=== PATIENT | male | born 1975 | race Caucasian/White ===

== ENCOUNTER 2022-07-10 15:45 | Inpatient (IN) ==
[2022-07-10] MEDS ORDERED: SODIUM CHLORIDE 0.9% 500 ML IV STA (20:19)
[2022-07-10 20:41] LABS: Basophils # 0.1 10*3/uL (0.0-0.2); Basophils % 0.7 % (0.0-0.8); Eosinophils # 0.4 10*3/uL (0.0-0.87); Eosinophils % 3.8 % (0.00-10.9); Hemoglobin 13.7 GM/DL (14.0-18.0); Immature Granulocytes % 0.7 %; Immature Granulocytes Absolute 0.08 #; Lymphocytes % 25.9 % (21.2-54.2); Mean Corpuscular HGB Conc 33.4 GM/DL (32-36); Mean Corpuscular Volume 87.4 FL (87-102); Monocytes # 0.7 10*3/uL (0.11-0.8); Monocytes % 5.9 % (1.7-12.7); Platelet Count 427 T/CUMM (130-400); Red Blood Count 4.69 MC/CUMM (3.8-5.5); White Blood Count 11.6 T/CUMM (4-12)
[2022-07-10 21:00] LABS: Alanine Aminotransferase 17 U/L (16-61); Albumin 2.7 G/DL (3.4-5.0); Alkaline Phosphatase 110 U/L (45-117); Amylase 37 U/L (25-115); Aspartate Amino Transferase 13 U/L (0-37); Bilirubin,Total < 0.39 MG/DL (0.20-1.00); Blood Urea Nitrogen 26 MG/DL (7-18); Calcium 9.1 MG/DL (8.5-10.1); Carbon Dioxide 28 MMOL/L (21-32); Chloride 102 MMOL/L (98-107); Glucose 327 MG/DL (74-106); Osmolality,Calculated 283.4 MOS/KG (273-304); Potassium 4.8 MMOL/L (3.5-5.1); Sodium 133 MMOL/L (136-145); Total Protein 7.9 G/DL (6.4-8.2)
[2022-07-10] MEDS ORDERED: INSULIN REGULAR 100 UNIT/ML SUBCUT STA (21:05)
[2022-07-10] MEDS ORDERED: VANCOMYCIN INJ 1,000 MG in SODIUM CHLORIDE 0.9% 250 ML IV STA (21:14)
[2022-07-10] MEDS ORDERED: ONDANSETRON 4 MG/2 ML VIAL IV PRN (21:54)
[2022-07-10] MEDS ORDERED: MORPHINE 2 MG/1 ML SYRINGE IV PRN (21:54)
[2022-07-10] MEDS ORDERED: ZALEPLON 5 MG CAPSULE PO PRN (21:54)
[2022-07-10] MEDS ORDERED: NICOTINE 21 MG/24 HR PATCH TRANSDERM PRN (21:54)
[2022-07-10] MEDS ORDERED: ACETAMINOPHEN 325 MG TABLET PO PRN (21:54)
[2022-07-10] MEDS ORDERED: hydrALAZINE 20 MG/1 ML VIAL IV PRN (21:54)
[2022-07-11] MEDS: PIPERACILLIN/TAZOBACTAM 3,375 MG in SODIUM CHLORIDE 0.9% 100 ML IV SCH ×3 (03:16→17:53)
[2022-07-11] MEDS: ENOXAPARIN 40 MG/0.4 ML SYRINGE SUBCUT SCH ×2 (03:16→22:13)
[2022-07-11 04:03] LABS: Basophils # 0.1 10*3/uL (0.0-0.2); Basophils % 0.8 % (0.0-0.8); Eosinophils # 0.4 10*3/uL (0.0-0.87); Eosinophils % 4.3 % (0.00-10.9); Hematocrit 36.4 VOL% (42.0-52.0); Hemoglobin 12.5 GM/DL (14.0-18.0); Immature Granulocytes % 0.5 %; Immature Granulocytes Absolute 0.04 #; Lymphocytes # 2.7 10*3/uL (1.4-4.0); Mean Corpuscular HGB Conc 34.3 GM/DL (32-36); Mean Corpuscular Volume 88.1 FL (87-102); Mean Platelet Volume 10.5 FL (9.6-12.0); Monocytes # 0.6 10*3/uL (0.11-0.8); Monocytes % 6.5 % (1.7-12.7); Neutrophils % 56.9 % (38.7-73.9); Platelet Count 380 T/CUMM (130-400); Red Blood Count 4.13 MC/CUMM (3.8-5.5); White Blood Count 8.6 T/CUMM (4-12)
[2022-07-11 04:11] LABS: Calcium 8.5 MG/DL (8.5-10.1); Osmolality,Calculated 285.3 MOS/KG (273-304); Potassium 3.9 MMOL/L (3.5-5.1)
[2022-07-11 05:37] LABS: Amorphous Crystals,Urine Occasional /HPF (Few); Bacteria,Urine Occasional /HPF (Few); Hyaline Casts,Urine 5 /LPF (0-3); Mucus,Urine Occasional /LPF (Occasional); RBC,Urine 6 /HPF (0-4); Squamous Epithelial Cell,Urine Occasional /HPF (0-10)
[2022-07-11 05:39] LABS: Urine Appearance Clear (Clear); Urine Color Yellow (Yellow); Urine Specific Gravity 1.025 (1.001-1.035); Urine pH 5.5 (4.5-8.0)
[2022-07-11 05:40] LABS: Bilirubin,Urine Negative (Negative); Blood, Urine Trace mg/dL (Negative); Glucose,Urine (UA) 500 mg/dL (Negative); Ketones,Urine Negative (Negative); Nitrite,Urine Negative (Negative); Protein,Urine >=300 mg/dL (Negative); Urine Urobilinogen 0.2 eU/dL (<2.0)
[2022-07-11] MEDS: INSULIN LISPRO 100 UNIT/ML SUBCUT SCH ×4 (07:37→22:14)
[2022-07-11] MEDS: PANTOPRAZOLE 40 MG TABLET PO SCH (10:10)
[2022-07-12] MEDS: PIPERACILLIN/TAZOBACTAM 3,375 MG in SODIUM CHLORIDE 0.9% 100 ML IV SCH ×3 (00:46→17:37)
[2022-07-12 04:52] LABS: Basophils # 0.1 10*3/uL (0.0-0.2); Basophils % 0.6 % (0.0-0.8); Eosinophils # 0.4 10*3/uL (0.0-0.87); Hematocrit 35.7 VOL% (42.0-52.0); Hemoglobin 11.7 GM/DL (14.0-18.0); Immature Granulocytes % 0.5 %; Immature Granulocytes Absolute 0.05 #; Lymphocytes # 2.9 10*3/uL (1.4-4.0); Lymphocytes % 27.1 % (21.2-54.2); Mean Corpuscular HGB Conc 32.8 GM/DL (32-36); Mean Corpuscular Volume 90.4 FL (87-102); Mean Platelet Volume 10.2 FL (9.6-12.0); Monocytes # 0.7 10*3/uL (0.11-0.8); Monocytes % 6.2 % (1.7-12.7); Neutrophils % 61.6 % (38.7-73.9); Platelet Count 346 T/CUMM (130-400); Red Blood Count 3.95 MC/CUMM (3.8-5.5); Red Cell Distribution Width 12.9 % (9.3-17.3); White Blood Count 10.5 T/CUMM (4-12)
[2022-07-12 05:25] LABS: Calcium 8.4 MG/DL (8.5-10.1); Osmolality,Calculated 285.7 MOS/KG (273-304); Potassium 4.1 MMOL/L (3.5-5.1)
[2022-07-12] MEDS: INSULIN GLARGINE 100 UNIT/ML SUBCUT SCH (10:00)
[2022-07-12] MEDS: INSULIN LISPRO 100 UNIT/ML SUBCUT SCH ×4 (10:06→21:44)
[2022-07-12] MEDS: PANTOPRAZOLE 40 MG TABLET PO SCH (10:06)
[2022-07-12] MEDS ORDERED: LOSARTAN 25 MG TABLET PO SCH (11:00)
[2022-07-12] MEDS: ATORVASTATIN 40 MG TABLET PO SCH (11:52)
[2022-07-12] MEDS ORDERED: DEXTROSE 10% 250 ML BAG IV PRN (13:22)
[2022-07-12] MEDS ORDERED: GLUCAGON 1 MG VIAL IM PRN (13:22)
[2022-07-12 13:42] LABS: INR 0.9; PT Patient Result 10.5 SECS (10.1-12.1); Partial Thromboplastin Time 36.4 SECS (23.7-32.9)
[2022-07-12] MEDS: ENOXAPARIN 40 MG/0.4 ML SYRINGE SUBCUT SCH (21:43)
[2022-07-13] MEDS: PIPERACILLIN/TAZOBACTAM 3,375 MG in SODIUM CHLORIDE 0.9% 100 ML IV SCH ×3 (00:54→17:09)
[2022-07-13 05:01] LABS: Basophils # 0.1 10*3/uL (0.0-0.2); Basophils % 0.6 % (0.0-0.8); Eosinophils # 0.5 10*3/uL (0.0-0.87); Eosinophils % 4.4 % (0.00-10.9); Hematocrit 36.5 VOL% (42.0-52.0); Hemoglobin 12.2 GM/DL (14.0-18.0); Immature Granulocytes % 0.4 %; Immature Granulocytes Absolute 0.04 #; Lymphocytes # 2.8 10*3/uL (1.4-4.0); Lymphocytes % 26.4 % (21.2-54.2); Mean Corpuscular HGB Conc 33.4 GM/DL (32-36); Mean Corpuscular Volume 88.6 FL (87-102); Mean Platelet Volume 9.9 FL (9.6-12.0); Monocytes # 0.8 10*3/uL (0.11-0.8); Monocytes % 7.4 % (1.7-12.7); Neutrophils % 60.8 % (38.7-73.9); Platelet Count 331 T/CUMM (130-400); Red Blood Count 4.12 MC/CUMM (3.8-5.5); Red Cell Distribution Width 12.9 % (9.3-17.3); White Blood Count 10.7 T/CUMM (4-12)
[2022-07-13 05:22] LABS: Calcium 8.5 MG/DL (8.5-10.1); Osmolality,Calculated 281.7 MOS/KG (273-304); Potassium 3.9 MMOL/L (3.5-5.1)
[2022-07-13] MEDS: PANTOPRAZOLE 40 MG TABLET PO SCH (09:39)
[2022-07-13] MEDS: ATORVASTATIN 40 MG TABLET PO SCH (09:39)
[2022-07-13] MEDS: LOSARTAN 50 MG TABLET PO SCH (09:39)
[2022-07-13] MEDS: INSULIN GLARGINE 100 UNIT/ML SUBCUT SCH ×2 (10:56→11:47)
[2022-07-13] MEDS: INSULIN LISPRO 100 UNIT/ML SUBCUT SCH ×4 (10:56→21:06)
[2022-07-13] MEDS: ENOXAPARIN 40 MG/0.4 ML SYRINGE SUBCUT SCH (21:04)
[2022-07-14] MEDS: PIPERACILLIN/TAZOBACTAM 3,375 MG in SODIUM CHLORIDE 0.9% 100 ML IV SCH ×3 (00:54→17:16)
[2022-07-14 06:51] LABS: Basophils # 0.1 10*3/uL (0.0-0.2); Basophils % 0.7 % (0.0-0.8); Eosinophils # 0.5 10*3/uL (0.0-0.87); Eosinophils % 4.3 % (0.00-10.9); Hematocrit 39.1 VOL% (42.0-52.0); Hemoglobin 12.9 GM/DL (14.0-18.0); Immature Granulocytes % 0.4 %; Immature Granulocytes Absolute 0.04 #; Lymphocytes # 2.8 10*3/uL (1.4-4.0); Lymphocytes % 26.4 % (21.2-54.2); Mean Corpuscular Volume 90.1 FL (87-102); Mean Platelet Volume 10.3 FL (9.6-12.0); Monocytes # 0.8 10*3/uL (0.11-0.8); Monocytes % 7.7 % (1.7-12.7); Neutrophils % 60.5 % (38.7-73.9); Platelet Count 341 T/CUMM (130-400); Red Blood Count 4.34 MC/CUMM (3.8-5.5); Red Cell Distribution Width 12.8 % (9.3-17.3); White Blood Count 10.7 T/CUMM (4-12)
[2022-07-14 07:10] LABS: Osmolality,Calculated 285.1 MOS/KG (273-304)
[2022-07-14] MEDS: INSULIN LISPRO 100 UNIT/ML SUBCUT SCH ×4 (09:26→21:37)
[2022-07-14] MEDS: INSULIN GLARGINE 100 UNIT/ML SUBCUT SCH ×2 (09:26→21:37)
[2022-07-14] MEDS: ATORVASTATIN 40 MG TABLET PO SCH (09:27)
[2022-07-14] MEDS: LOSARTAN 50 MG TABLET PO SCH (09:27)
[2022-07-14] MEDS: PANTOPRAZOLE 40 MG TABLET PO SCH (09:27)
[2022-07-14] MEDS: ENOXAPARIN 40 MG/0.4 ML SYRINGE SUBCUT SCH (21:12)
[2022-07-15] MEDS: PIPERACILLIN/TAZOBACTAM 3,375 MG in SODIUM CHLORIDE 0.9% 100 ML IV SCH ×3 (01:26→16:50)
[2022-07-15 05:07] LABS: Basophils # 0.1 10*3/uL (0.0-0.2); Basophils % 0.7 % (0.0-0.8); Eosinophils # 0.5 10*3/uL (0.0-0.87); Eosinophils % 4.7 % (0.00-10.9); Hematocrit 37.8 VOL% (42.0-52.0); Hemoglobin 12.5 GM/DL (14.0-18.0); Immature Granulocytes % 0.5 %; Immature Granulocytes Absolute 0.06 #; Lymphocytes # 2.9 10*3/uL (1.4-4.0); Lymphocytes % 25.7 % (21.2-54.2); Mean Corpuscular HGB Conc 33.1 GM/DL (32-36); Mean Corpuscular Volume 89.8 FL (87-102); Mean Platelet Volume 10.5 FL (9.6-12.0); Monocytes # 0.9 10*3/uL (0.11-0.8); Monocytes % 7.6 % (1.7-12.7); Neutrophils % 60.8 % (38.7-73.9); Platelet Count 329 T/CUMM (130-400); Red Blood Count 4.21 MC/CUMM (3.8-5.5); White Blood Count 11.2 T/CUMM (4-12)
[2022-07-15 05:26] LABS: Calcium 8.4 MG/DL (8.5-10.1); Osmolality,Calculated 286.4 MOS/KG (273-304); Potassium 3.6 MMOL/L (3.5-5.1)
[2022-07-15] MEDS: INSULIN LISPRO 100 UNIT/ML SUBCUT SCH ×4 (10:27→21:30)
[2022-07-15] MEDS: ATORVASTATIN 40 MG TABLET PO SCH (10:46)
[2022-07-15] MEDS: LOSARTAN 50 MG TABLET PO SCH (10:46)
[2022-07-15] MEDS: PANTOPRAZOLE 40 MG TABLET PO SCH (10:47)
[2022-07-15] MEDS: INSULIN GLARGINE 100 UNIT/ML SUBCUT SCH ×2 (10:54→21:30)
[2022-07-15] MEDS ORDERED: SODIUM CHLORIDE 0.9% 1,000 ML IV SCH (15:00)
[2022-07-15] MEDS: LACTATED RINGERS 1,000 ML IV SCH (16:49)
[2022-07-15] MEDS: ENOXAPARIN 40 MG/0.4 ML SYRINGE SUBCUT SCH (21:30)
[2022-07-16] MEDS: PIPERACILLIN/TAZOBACTAM 3,375 MG in SODIUM CHLORIDE 0.9% 100 ML IV SCH ×3 (01:55→17:59)
[2022-07-16 04:57] LABS: Basophils # 0.1 10*3/uL (0.0-0.2); Basophils % 0.6 % (0.0-0.8); Eosinophils # 0.5 10*3/uL (0.0-0.87); Eosinophils % 5.2 % (0.00-10.9); Hematocrit 36.2 VOL% (42.0-52.0); Hemoglobin 12.1 GM/DL (14.0-18.0); Immature Granulocytes % 0.4 %; Immature Granulocytes Absolute 0.04 #; Lymphocytes # 1.9 10*3/uL (1.4-4.0); Lymphocytes % 19.4 % (21.2-54.2); Mean Corpuscular HGB Conc 33.4 GM/DL (32-36); Mean Corpuscular Volume 89.6 FL (87-102); Mean Platelet Volume 10.2 FL (9.6-12.0); Monocytes # 0.9 10*3/uL (0.11-0.8); Monocytes % 9.1 % (1.7-12.7); Neutrophils % 65.3 % (38.7-73.9); Platelet Count 315 T/CUMM (130-400); Red Blood Count 4.04 MC/CUMM (3.8-5.5); White Blood Count 9.9 T/CUMM (4-12)
[2022-07-16 05:24] LABS: Calcium 8.6 MG/DL (8.5-10.1); Osmolality,Calculated 290.4 MOS/KG (273-304); Potassium 3.6 MMOL/L (3.5-5.1)
[2022-07-16] MEDS: INSULIN LISPRO 100 UNIT/ML SUBCUT SCH ×4 (08:46→21:22)
[2022-07-16] MEDS: INSULIN GLARGINE 100 UNIT/ML SUBCUT SCH (08:46)
[2022-07-16] MEDS: ATORVASTATIN 80 MG TABLET PO SCH (08:47)
[2022-07-16] MEDS: ASPIRIN CHEW 81 MG TABLET PO SCH (08:47)
[2022-07-16] MEDS: PANTOPRAZOLE 40 MG TABLET PO SCH (08:47)
[2022-07-16] MEDS: ACETYLCYSTEINE 600 MG CAPSULE PO SCH ×2 (08:50→21:24)
[2022-07-16] MEDS: LACTATED RINGERS 1,000 ML IV SCH (09:22)
[2022-07-16] MEDS ORDERED: INSULIN GLARGINE 100 UNIT/ML SUBCUT ONE (13:00)
[2022-07-16] MEDS: SODIUM CHLORIDE 0.9% 1,000 ML IV SCH (18:05)
[2022-07-16] MEDS: ENOXAPARIN 40 MG/0.4 ML SYRINGE SUBCUT SCH (21:24)
[2022-07-17] MEDS: PIPERACILLIN/TAZOBACTAM 3,375 MG in SODIUM CHLORIDE 0.9% 100 ML IV SCH ×3 (02:09→17:10)
[2022-07-17 04:58] LABS: Basophils # 0.1 10*3/uL (0.0-0.2); Basophils % 0.7 % (0.0-0.8); Eosinophils # 0.6 10*3/uL (0.0-0.87); Hematocrit 35.5 VOL% (42.0-52.0); Hemoglobin 11.7 GM/DL (14.0-18.0); Immature Granulocytes % 0.3 %; Immature Granulocytes Absolute 0.03 #; Lymphocytes # 2.2 10*3/uL (1.4-4.0); Lymphocytes % 22.8 % (21.2-54.2); Mean Corpuscular Volume 88.8 FL (87-102); Mean Platelet Volume 10.1 FL (9.6-12.0); Monocytes # 0.7 10*3/uL (0.11-0.8); Monocytes % 7.6 % (1.7-12.7); Neutrophils % 62.6 % (38.7-73.9); Platelet Count 298 T/CUMM (130-400); White Blood Count 9.5 T/CUMM (4-12)
[2022-07-17 05:22] LABS: Calcium 8.5 MG/DL (8.5-10.1); Osmolality,Calculated 292.4 MOS/KG (273-304)
[2022-07-17] MEDS: ATORVASTATIN 80 MG TABLET PO SCH (08:56)
[2022-07-17] MEDS: INSULIN LISPRO 100 UNIT/ML SUBCUT SCH ×4 (08:56→20:35)
[2022-07-17] MEDS: ACETYLCYSTEINE 600 MG CAPSULE PO SCH ×2 (08:56→20:35)
[2022-07-17] MEDS: ASPIRIN CHEW 81 MG TABLET PO SCH (08:56)
[2022-07-17] MEDS: PANTOPRAZOLE 40 MG TABLET PO SCH (08:56)
[2022-07-17] MEDS: INSULIN GLARGINE 100 UNIT/ML SUBCUT SCH (09:02)
[2022-07-17] MEDS: SODIUM CHLORIDE 0.9% 1,000 ML IV SCH ×2 (09:57→23:28)
[2022-07-17] MEDS: ENOXAPARIN 40 MG/0.4 ML SYRINGE SUBCUT SCH (20:32)
[2022-07-18] MEDS: PIPERACILLIN/TAZOBACTAM 3,375 MG in SODIUM CHLORIDE 0.9% 100 ML IV SCH ×2 (01:21→09:56)
[2022-07-18 05:02] LABS: Basophils # 0.1 10*3/uL (0.0-0.2); Basophils % 0.9 % (0.0-0.8); Eosinophils # 0.5 10*3/uL (0.0-0.87); Eosinophils % 5.7 % (0.00-10.9); Hematocrit 36.1 VOL% (42.0-52.0); Immature Granulocytes % 0.3 %; Immature Granulocytes Absolute 0.03 #; Lymphocytes # 2.3 10*3/uL (1.4-4.0); Lymphocytes % 25.8 % (21.2-54.2); Mean Corpuscular HGB Conc 33.2 GM/DL (32-36); Mean Corpuscular Volume 88.7 FL (87-102); Mean Platelet Volume 10.2 FL (9.6-12.0); Monocytes # 0.8 10*3/uL (0.11-0.8); Monocytes % 8.6 % (1.7-12.7); Neutrophils % 58.7 % (38.7-73.9); Platelet Count 307 T/CUMM (130-400); Red Blood Count 4.07 MC/CUMM (3.8-5.5); Red Cell Distribution Width 13.1 % (9.3-17.3); White Blood Count 8.9 T/CUMM (4-12)
[2022-07-18 05:16] LABS: Calcium 8.8 MG/DL (8.5-10.1); Osmolality,Calculated 289.1 MOS/KG (273-304); Potassium 3.8 MMOL/L (3.5-5.1)
[2022-07-18] MEDS: INSULIN LISPRO 100 UNIT/ML SUBCUT SCH ×4 (07:58→23:40)
[2022-07-18] MEDS: INSULIN GLARGINE 100 UNIT/ML SUBCUT SCH (09:58)
[2022-07-18] MEDS: ASPIRIN CHEW 81 MG TABLET PO SCH (10:01)
[2022-07-18] MEDS: ATORVASTATIN 80 MG TABLET PO SCH (10:01)
[2022-07-18] MEDS: SODIUM CHLORIDE 0.9% 1,000 ML IV SCH ×3 (10:02→23:31)
[2022-07-18] MEDS: PANTOPRAZOLE 40 MG TABLET PO SCH (10:02)
[2022-07-18] MEDS: ACETYLCYSTEINE 600 MG CAPSULE PO SCH ×2 (10:02→23:30)
[2022-07-18] MEDS ORDERED: diphenhydrAMINE CAP 25 MG CAPSULE PO ONE (15:30)
[2022-07-18] MEDS ORDERED: DIAZEPAM 5 MG TABLET PO ONE (15:30)
[2022-07-18] MEDS: ENOXAPARIN 40 MG/0.4 ML SYRINGE SUBCUT SCH (23:30)
[2022-07-19 08:35] LABS: Basophils # 0.1 10*3/uL (0.0-0.2); Basophils % 0.7 % (0.0-0.8); Eosinophils # 0.5 10*3/uL (0.0-0.87); Eosinophils % 5.5 % (0.00-10.9); Hemoglobin 13.3 GM/DL (14.0-18.0); Immature Granulocytes % 0.4 %; Immature Granulocytes Absolute 0.04 #; Lymphocytes # 2.2 10*3/uL (1.4-4.0); Lymphocytes % 22.7 % (21.2-54.2); Mean Corpuscular HGB Conc 33.3 GM/DL (32-36); Mean Corpuscular Volume 88.5 FL (87-102); Mean Platelet Volume 9.9 FL (9.6-12.0); Monocytes # 0.7 10*3/uL (0.11-0.8); Monocytes % 6.9 % (1.7-12.7); Neutrophils % 63.8 % (38.7-73.9); Platelet Count 321 T/CUMM (130-400); Red Blood Count 4.52 MC/CUMM (3.8-5.5); Red Cell Distribution Width 13.2 % (9.3-17.3); White Blood Count 9.7 T/CUMM (4-12)
[2022-07-19 08:41] LABS: Calcium 9.3 MG/DL (8.5-10.1); Osmolality,Calculated 288.4 MOS/KG (273-304); Potassium 4.5 MMOL/L (3.5-5.1)
[2022-07-19] MEDS: INSULIN LISPRO 100 UNIT/ML SUBCUT SCH ×4 (09:41→22:16)
[2022-07-19] MEDS: INSULIN GLARGINE 100 UNIT/ML SUBCUT SCH (09:42)
[2022-07-19] MEDS: ATORVASTATIN 80 MG TABLET PO SCH (09:43)
[2022-07-19] MEDS: ACETYLCYSTEINE 600 MG CAPSULE PO SCH ×2 (09:43→22:16)
[2022-07-19] MEDS: ASPIRIN CHEW 81 MG TABLET PO SCH (09:43)
[2022-07-19] MEDS: PANTOPRAZOLE 40 MG TABLET PO SCH (09:43)
[2022-07-19] MEDS: SODIUM CHLORIDE 0.9% 1,000 ML IV SCH (13:27)
[2022-07-19] MEDS: ENOXAPARIN 40 MG/0.4 ML SYRINGE SUBCUT SCH (22:16)
[2022-07-20 05:47] LABS: Basophils # 0.1 10*3/uL (0.0-0.2); Basophils % 0.7 % (0.0-0.8); Eosinophils # 0.6 10*3/uL (0.0-0.87); Eosinophils % 6.4 % (0.00-10.9); Hematocrit 38.8 VOL% (42.0-52.0); Hemoglobin 12.7 GM/DL (14.0-18.0); Immature Granulocytes % 0.7 %; Immature Granulocytes Absolute 0.07 #; Lymphocytes # 3.4 10*3/uL (1.4-4.0); Lymphocytes % 34.4 % (21.2-54.2); Mean Corpuscular HGB Conc 32.7 GM/DL (32-36); Mean Corpuscular Volume 89.8 FL (87-102); Mean Platelet Volume 10.2 FL (9.6-12.0); Monocytes # 0.8 10*3/uL (0.11-0.8); Monocytes % 8.5 % (1.7-12.7); Neutrophils % 49.3 % (38.7-73.9); Platelet Count 309 T/CUMM (130-400); Red Blood Count 4.32 MC/CUMM (3.8-5.5); Red Cell Distribution Width 13.2 % (9.3-17.3); White Blood Count 9.8 T/CUMM (4-12)
[2022-07-20 05:55] LABS: Calcium 8.2 MG/DL (8.5-10.1); Osmolality,Calculated 293.3 MOS/KG (273-304)
[2022-07-20] MEDS: SODIUM CHLORIDE 0.9% 1,000 ML IV SCH (06:15)
[2022-07-20 06:36] LABS: Platelet Estimate Normal
[2022-07-20 06:37] LABS: Anisocytosis Slight; Burr Cells Few
[2022-07-20] MEDS: ACETYLCYSTEINE 600 MG CAPSULE PO SCH ×2 (09:47→20:37)
[2022-07-20] MEDS: INSULIN GLARGINE 100 UNIT/ML SUBCUT SCH (09:47)
[2022-07-20] MEDS: PANTOPRAZOLE 40 MG TABLET PO SCH (09:47)
[2022-07-20] MEDS: ASPIRIN CHEW 81 MG TABLET PO SCH (09:47)
[2022-07-20] MEDS: ATORVASTATIN 80 MG TABLET PO SCH (09:47)
[2022-07-20] MEDS: INSULIN LISPRO 100 UNIT/ML SUBCUT SCH ×4 (09:48→20:37)
[2022-07-20] MEDS: ENOXAPARIN 40 MG/0.4 ML SYRINGE SUBCUT SCH (20:37)
[2022-07-21] MEDS: SODIUM CHLORIDE 0.9% 1,000 ML IV SCH ×5 (00:10→19:55)
[2022-07-21 07:01] LABS: Basophils # 0.1 10*3/uL (0.0-0.2); Basophils % 0.9 % (0.0-0.8); Eosinophils # 0.7 10*3/uL (0.0-0.87); Eosinophils % 7.4 % (0.00-10.9); Hematocrit 38.2 VOL% (42.0-52.0); Hemoglobin 12.5 GM/DL (14.0-18.0); Immature Granulocytes % 0.7 %; Immature Granulocytes Absolute 0.06 #; Lymphocytes # 2.4 10*3/uL (1.4-4.0); Lymphocytes % 27.2 % (21.2-54.2); Mean Corpuscular HGB Conc 32.7 GM/DL (32-36); Mean Corpuscular Volume 90.1 FL (87-102); Mean Platelet Volume 10.3 FL (9.6-12.0); Monocytes # 0.7 10*3/uL (0.11-0.8); Monocytes % 7.8 % (1.7-12.7); Platelet Count 307 T/CUMM (130-400); Red Blood Count 4.24 MC/CUMM (3.8-5.5); Red Cell Distribution Width 13.3 % (9.3-17.3); White Blood Count 8.9 T/CUMM (4-12)
[2022-07-21 07:10] LABS: Calcium 8.6 MG/DL (8.5-10.1); Osmolality,Calculated 294.3 MOS/KG (273-304)
[2022-07-21] MEDS: PANTOPRAZOLE 40 MG TABLET PO SCH (09:55)
[2022-07-21] MEDS: INSULIN LISPRO 100 UNIT/ML SUBCUT SCH ×4 (09:55→21:36)
[2022-07-21] MEDS: ASPIRIN CHEW 81 MG TABLET PO SCH (09:56)
[2022-07-21] MEDS: ATORVASTATIN 80 MG TABLET PO SCH (09:56)
[2022-07-21] MEDS: ACETYLCYSTEINE 600 MG CAPSULE PO SCH ×2 (09:56→21:50)
[2022-07-21] MEDS: INSULIN GLARGINE 100 UNIT/ML SUBCUT SCH ×2 (09:58→10:30)
[2022-07-21] MEDS: PIPERACILLIN/TAZOBACTAM 3,375 MG in SODIUM CHLORIDE 0.9% 100 ML IV SCH ×2 (11:58→21:51)
[2022-07-21] MEDS: ENOXAPARIN 40 MG/0.4 ML SYRINGE SUBCUT SCH (21:50)
[2022-07-22] MEDS: PIPERACILLIN/TAZOBACTAM 3,375 MG in SODIUM CHLORIDE 0.9% 100 ML IV SCH ×3 (03:47→21:17)
[2022-07-22 05:28] LABS: Basophils # 0.1 10*3/uL (0.0-0.2); Basophils % 0.9 % (0.0-0.8); Eosinophils # 0.7 10*3/uL (0.0-0.87); Eosinophils % 7.1 % (0.00-10.9); Hematocrit 35.5 VOL% (42.0-52.0); Hemoglobin 11.7 GM/DL (14.0-18.0); Immature Granulocytes % 0.6 %; Immature Granulocytes Absolute 0.06 #; Lymphocytes # 2.4 10*3/uL (1.4-4.0); Lymphocytes % 25.4 % (21.2-54.2); Mean Corpuscular Volume 89.9 FL (87-102); Mean Platelet Volume 10.1 FL (9.6-12.0); Monocytes # 0.7 10*3/uL (0.11-0.8); Monocytes % 7.4 % (1.7-12.7); Neutrophils % 58.6 % (38.7-73.9); Platelet Count 303 T/CUMM (130-400); Red Blood Count 3.95 MC/CUMM (3.8-5.5); Red Cell Distribution Width 13.3 % (9.3-17.3); White Blood Count 9.4 T/CUMM (4-12)
[2022-07-22 05:52] LABS: Calcium 8.5 MG/DL (8.5-10.1); Osmolality,Calculated 292.1 MOS/KG (273-304); Potassium 3.9 MMOL/L (3.5-5.1)
[2022-07-22] MEDS ORDERED: diphenhydrAMINE CAP 25 MG CAPSULE PO ONE (07:45)
[2022-07-22] MEDS ORDERED: DIAZEPAM 5 MG TABLET PO ONE (07:45)
[2022-07-22] MEDS: SODIUM CHLORIDE 0.9% 1,000 ML IV SCH (07:55)
[2022-07-22] MEDS: INSULIN LISPRO 100 UNIT/ML SUBCUT SCH ×4 (07:57→21:18)
[2022-07-22] MEDS ORDERED: HYDROmorphone 1 MG/1 ML SYRINGE ONE ×2 (08:01→08:24)
[2022-07-22] MEDS ORDERED: MIDAZOLAM 2 MG/2 ML VIAL ONE (08:01)
[2022-07-22] MEDS ORDERED: VERAPAMIL 5 MG/2 ML VIAL ONE (08:10)
[2022-07-22] MEDS ORDERED: diphenhydrAMINE 50 MG/1 ML VIAL ONE (08:10)
[2022-07-22] MEDS ORDERED: NITROGLYCERIN DRIP 50 MG/250 ML BOTTLE IV ONE (08:10)
[2022-07-22] MEDS ORDERED: ASPIRIN CHEW 81 MG TABLET PO ONE (08:10)
[2022-07-22] MEDS ORDERED: HEPARIN 5,000 UNIT/1 ML VIAL ONE (08:53)
[2022-07-22] MEDS: ACETYLCYSTEINE 600 MG CAPSULE PO SCH ×2 (09:00→21:18)
[2022-07-22] MEDS: ATORVASTATIN 80 MG TABLET PO SCH (09:00)
[2022-07-22] MEDS: INSULIN GLARGINE 100 UNIT/ML SUBCUT SCH (09:00)
[2022-07-22] MEDS: PANTOPRAZOLE 40 MG TABLET PO SCH (09:00)
[2022-07-22] MEDS ORDERED: TIROFIBAN 5,000 MCG/100 ML PREMIX IV ONE (09:12)
[2022-07-22] MEDS ORDERED: CLOPIDOGREL 300 MG TABLET ONE (10:30)
[2022-07-22] MEDS: ASPIRIN CHEW 81 MG TABLET PO SCH (11:25)
[2022-07-22] MEDS ORDERED: DEXTROSE 50% 25 GM/50 ML VIAL IV PRN (17:08)
[2022-07-22] MEDS ORDERED: GLUCAGON 1 MG VIAL IM PRN (17:08)
[2022-07-22] MEDS: ENOXAPARIN 40 MG/0.4 ML SYRINGE SUBCUT SCH (21:18)
[2022-07-23 04:05] LABS: Basophils # 0.1 10*3/uL (0.0-0.2); Basophils % 0.6 % (0.0-0.8); Eosinophils # 0.8 10*3/uL (0.0-0.87); Eosinophils % 6.1 % (0.00-10.9); Hematocrit 36.3 VOL% (42.0-52.0); Hemoglobin 11.9 GM/DL (14.0-18.0); Immature Granulocytes % 0.5 %; Immature Granulocytes Absolute 0.07 #; Lymphocytes # 2.7 10*3/uL (1.4-4.0); Lymphocytes % 19.3 % (21.2-54.2); Mean Corpuscular HGB Conc 32.8 GM/DL (32-36); Mean Corpuscular Volume 89.9 FL (87-102); Monocytes # 0.9 10*3/uL (0.11-0.8); Monocytes % 6.3 % (1.7-12.7); Neutrophils % 67.2 % (38.7-73.9); Platelet Count 309 T/CUMM (130-400); Red Blood Count 4.04 MC/CUMM (3.8-5.5); Red Cell Distribution Width 13.3 % (9.3-17.3); White Blood Count 13.8 T/CUMM (4-12)
[2022-07-23 04:21] LABS: Calcium 8.6 MG/DL (8.5-10.1); Osmolality,Calculated 288.4 MOS/KG (273-304); Potassium 4.3 MMOL/L (3.5-5.1)
[2022-07-23] MEDS: PIPERACILLIN/TAZOBACTAM 3,375 MG in SODIUM CHLORIDE 0.9% 100 ML IV SCH ×3 (05:50→20:20)
[2022-07-23] MEDS: INSULIN LISPRO 100 UNIT/ML SUBCUT SCH ×4 (07:44→20:27)
[2022-07-23] MEDS: SODIUM CHLORIDE 0.9% 1,000 ML IV SCH ×3 (07:45→16:49)
[2022-07-23] MEDS: ACETYLCYSTEINE 600 MG CAPSULE PO SCH ×2 (09:21→20:20)
[2022-07-23] MEDS: INSULIN GLARGINE 100 UNIT/ML SUBCUT SCH (09:21)
[2022-07-23] MEDS: CLOPIDOGREL 75 MG TABLET PO SCH (09:21)
[2022-07-23] MEDS: ASPIRIN CHEW 81 MG TABLET PO SCH (09:21)
[2022-07-23] MEDS: ATORVASTATIN 80 MG TABLET PO SCH (09:22)
[2022-07-23] MEDS: PANTOPRAZOLE 40 MG TABLET PO SCH (09:22)
[2022-07-23] MEDS: ENOXAPARIN 40 MG/0.4 ML SYRINGE SUBCUT SCH (20:20)
[2022-07-24] MEDS: SODIUM CHLORIDE 0.9% 1,000 ML IV SCH ×2 (04:57→07:01)
[2022-07-24] MEDS: PIPERACILLIN/TAZOBACTAM 3,375 MG in SODIUM CHLORIDE 0.9% 100 ML IV SCH ×3 (04:57→21:36)
[2022-07-24 07:46] LABS: Phosphorous 3.4 MG/DL (2.5-4.9); Uric Acid 4.6 MG/DL (3.5-7.2)
[2022-07-24] MEDS: INSULIN LISPRO 100 UNIT/ML SUBCUT SCH ×3 (07:52→16:23)
[2022-07-24] MEDS: ASPIRIN CHEW 81 MG TABLET PO SCH (08:51)
[2022-07-24] MEDS: ATORVASTATIN 80 MG TABLET PO SCH (08:51)
[2022-07-24] MEDS: CLOPIDOGREL 75 MG TABLET PO SCH (08:51)
[2022-07-24] MEDS: ACETYLCYSTEINE 600 MG CAPSULE PO SCH ×2 (08:51→21:36)
[2022-07-24] MEDS: PANTOPRAZOLE 40 MG TABLET PO SCH (08:51)
[2022-07-24] MEDS: INSULIN GLARGINE 100 UNIT/ML SUBCUT SCH (08:56)
[2022-07-24 16:10] LABS: Protein/Creatinine Ratio,Urine 2.5 RATIO
[2022-07-24] MEDS: ENOXAPARIN 40 MG/0.4 ML SYRINGE SUBCUT SCH (22:19)
[2022-07-25] MEDS: INSULIN LISPRO 100 UNIT/ML SUBCUT SCH ×5 (02:20→20:47)
[2022-07-25] MEDS: SODIUM CHLORIDE 0.9% 1,000 ML IV SCH ×2 (04:53→09:24)
[2022-07-25] MEDS: PIPERACILLIN/TAZOBACTAM 3,375 MG in SODIUM CHLORIDE 0.9% 100 ML IV SCH ×3 (05:06→20:44)
[2022-07-25] MEDS ORDERED: MIDAZOLAM 2 MG/2 ML VIAL ONE (07:31)
[2022-07-25] MEDS ORDERED: LIDOCAINE 2% 5 ML VIAL ONE (07:31)
[2022-07-25] MEDS ORDERED: propofoL 200 MG/20 ML VIAL IV ONE ×2 (07:31→07:40)
[2022-07-25] MEDS ORDERED: fentaNYL 100 MCG/2 ML VIAL ONE (07:31)
[2022-07-25] MEDS ORDERED: LIDOCAINE 1% 5 ML VIAL ONE (07:53)
[2022-07-25] MEDS ORDERED: BUPIVACAINE MPF 0.25% 10 ML VIAL ONE (07:53)
[2022-07-25] MEDS ORDERED: KETAMINE 500 MG/10 ML VIAL ONE (08:14)
[2022-07-25] MEDS: ASPIRIN CHEW 81 MG TABLET PO SCH (09:27)
[2022-07-25] MEDS: CLOPIDOGREL 75 MG TABLET PO SCH (09:27)
[2022-07-25] MEDS: INSULIN GLARGINE 100 UNIT/ML SUBCUT SCH (10:02)
[2022-07-25] MEDS: ACETYLCYSTEINE 600 MG CAPSULE PO SCH ×2 (10:29→20:49)
[2022-07-25] MEDS: PANTOPRAZOLE 40 MG TABLET PO SCH (10:29)
[2022-07-25] MEDS: ATORVASTATIN 80 MG TABLET PO SCH (10:29)
[2022-07-25 10:51] LABS: Calcium 8.6 MG/DL (8.5-10.1)
[2022-07-25] MEDS: ENOXAPARIN 40 MG/0.4 ML SYRINGE SUBCUT SCH (20:48)
[2022-07-26 06:09] LABS: Calcium 8.2 MG/DL (8.5-10.1); Potassium 3.7 MMOL/L (3.5-5.1)
[2022-07-26] MEDS: PIPERACILLIN/TAZOBACTAM 3,375 MG in SODIUM CHLORIDE 0.9% 100 ML IV SCH ×2 (06:36→15:13)
[2022-07-26] MEDS: INSULIN LISPRO 100 UNIT/ML SUBCUT SCH ×4 (07:43→22:50)
[2022-07-26] MEDS: ATORVASTATIN 80 MG TABLET PO SCH (08:56)
[2022-07-26] MEDS: CLOPIDOGREL 75 MG TABLET PO SCH (08:57)
[2022-07-26] MEDS: ASPIRIN CHEW 81 MG TABLET PO SCH (08:57)
[2022-07-26] MEDS: PANTOPRAZOLE 40 MG TABLET PO SCH (10:15)
[2022-07-26] MEDS: INSULIN GLARGINE 100 UNIT/ML SUBCUT SCH (15:06)
[2022-07-26] MEDS: ACETYLCYSTEINE 600 MG CAPSULE PO SCH ×2 (15:06→22:50)
[2022-07-26] MEDS: ENOXAPARIN 40 MG/0.4 ML SYRINGE SUBCUT SCH (22:49)
[2022-07-27] MEDS: PIPERACILLIN/TAZOBACTAM 3,375 MG in SODIUM CHLORIDE 0.9% 100 ML IV SCH ×2 (00:26→08:58)
[2022-07-27] MEDS: ATORVASTATIN 80 MG TABLET PO SCH (08:57)
[2022-07-27] MEDS: ASPIRIN CHEW 81 MG TABLET PO SCH (08:57)
[2022-07-27] MEDS: CLOPIDOGREL 75 MG TABLET PO SCH (08:57)
[2022-07-27] MEDS: PANTOPRAZOLE 40 MG TABLET PO SCH (08:57)
[2022-07-27] MEDS: ACETYLCYSTEINE 600 MG CAPSULE PO SCH (08:57)
[2022-07-27] MEDS: INSULIN LISPRO 100 UNIT/ML SUBCUT SCH ×2 (08:58→12:47)
[2022-07-27] MEDS: INSULIN GLARGINE 100 UNIT/ML SUBCUT SCH (11:32)
[2022-07-27 12:31] VITALS: BP 159/65
== END 2022-07-27 13:10 | disposition home or self-care (01) | DRG 271 ==
LOC: EDUNIT# → EDBD → N.ED 15:45 → N.EDINP 21:40 → SUATTDRO 21:40 → N.5E 07-11 12:35
PROVIDERS: ADMIT Internal Medicine; ATTEND Internal Medicine Geriatric Medicine

== ENCOUNTER 2022-08-14 15:54 | Inpatient (IN) ==
[2022-08-14] MEDS ORDERED: PROMETHAZINE 25 MG/1 ML VIAL IM PRN (16:48)
[2022-08-14] MEDS ORDERED: ONDANSETRON 4 MG/2 ML VIAL IV PRN (16:48)
[2022-08-14] MEDS ORDERED: HYDROmorphone 1 MG/1 ML SYRINGE IV PRN (16:48)
[2022-08-14] MEDS ORDERED: ACETAMINOPHEN 325 MG TABLET PO PRN (16:48)
[2022-08-14] MEDS: LACTATED RINGERS 1,000 ML IV SCH (17:00)
[2022-08-14 17:40] LABS: Basophils # 0.1 10*3/uL (0.0-0.2); Basophils % 0.6 % (0.0-0.8); Eosinophils # 0.5 10*3/uL (0.0-0.87); Eosinophils % 4.9 % (0.00-10.9); Hematocrit 33.1 VOL% (42.0-52.0); Immature Granulocytes % 0.5 %; Immature Granulocytes Absolute 0.05 #; Lymphocytes # 2.3 10*3/uL (1.4-4.0); Lymphocytes % 21.3 % (21.2-54.2); Mean Corpuscular HGB Conc 33.2 GM/DL (32-36); Mean Platelet Volume 10.3 FL (9.6-12.0); Monocytes % 8.9 % (1.7-12.7); Neutrophils % 63.8 % (38.7-73.9); Platelet Count 334 T/CUMM (130-400); Red Blood Count 3.72 MC/CUMM (3.8-5.5); Red Cell Distribution Width 13.5 % (9.3-17.3); White Blood Count 10.7 T/CUMM (4-12)
[2022-08-14 17:56] LABS: Calcium 8.9 MG/DL (8.5-10.1); Osmolality,Calculated 290.7 MOS/KG (273-304); Potassium 4.7 MMOL/L (3.5-5.1)
[2022-08-14] MEDS: LINEZOLID INJ 600 MG/300 ML PREMIX IV SCH (20:34)
[2022-08-14] MEDS: PIPERACILLIN/TAZOBACTAM 3,375 MG in SODIUM CHLORIDE 0.9% 100 ML IV SCH (22:30)
[2022-08-15 05:01] LABS: Basophils # 0.1 10*3/uL (0.0-0.2); Basophils % 0.9 % (0.0-0.8); Eosinophils # 0.6 10*3/uL (0.0-0.87); Eosinophils % 6.1 % (0.00-10.9); Hematocrit 31.2 VOL% (42.0-52.0); Hemoglobin 10.2 GM/DL (14.0-18.0); Immature Granulocytes % 0.3 %; Immature Granulocytes Absolute 0.03 #; Lymphocytes # 2.3 10*3/uL (1.4-4.0); Lymphocytes % 23.6 % (21.2-54.2); Mean Corpuscular HGB Conc 32.7 GM/DL (32-36); Mean Corpuscular Volume 89.4 FL (87-102); Mean Platelet Volume 10.6 FL (9.6-12.0); Monocytes # 0.6 10*3/uL (0.11-0.8); Monocytes % 6.3 % (1.7-12.7); Neutrophils % 62.8 % (38.7-73.9); Platelet Count 302 T/CUMM (130-400); Red Blood Count 3.49 MC/CUMM (3.8-5.5); Red Cell Distribution Width 13.4 % (9.3-17.3); White Blood Count 9.8 T/CUMM (4-12)
[2022-08-15 05:26] LABS: Calcium 8.6 MG/DL (8.5-10.1); Osmolality,Calculated 286.5 MOS/KG (273-304); Potassium 4.5 MMOL/L (3.5-5.1)
[2022-08-15] MEDS: PIPERACILLIN/TAZOBACTAM 3,375 MG in SODIUM CHLORIDE 0.9% 100 ML IV SCH ×3 (05:26→22:15)
[2022-08-15] MEDS ORDERED: GLUCAGON 1 MG VIAL IM PRN (08:32)
[2022-08-15] MEDS ORDERED: DEXTROSE 10% 250 ML BAG IV PRN (08:32)
[2022-08-15] MEDS: LACTATED RINGERS 1,000 ML IV SCH ×2 (11:01→19:30)
[2022-08-15] MEDS: LINEZOLID INJ 600 MG/300 ML PREMIX IV SCH ×2 (11:01→21:07)
[2022-08-15] MEDS: ENOXAPARIN 40 MG/0.4 ML SYRINGE SUBCUT SCH (11:02)
[2022-08-15] MEDS: PANTOPRAZOLE 40 MG TABLET PO SCH (11:02)
[2022-08-15] MEDS: INSULIN LISPRO 100 UNIT/ML SUBCUT SCH (21:16)
[2022-08-16] MEDS: PIPERACILLIN/TAZOBACTAM 3,375 MG in SODIUM CHLORIDE 0.9% 100 ML IV SCH ×3 (05:45→22:35)
[2022-08-16] MEDS: ASPIRIN CHEW 81 MG TABLET PO SCH (08:49)
[2022-08-16] MEDS: PANTOPRAZOLE 40 MG TABLET PO SCH (08:49)
[2022-08-16] MEDS: CLOPIDOGREL 75 MG TABLET PO SCH (08:50)
[2022-08-16] MEDS: INSULIN LISPRO 100 UNIT/ML SUBCUT SCH ×4 (08:50→21:53)
[2022-08-16] MEDS: lisinopriL 5 MG TABLET PO SCH (08:50)
[2022-08-16] MEDS ORDERED: INSULIN NPH 100 UNIT/ML SUBCUT SCH (09:00)
[2022-08-16] MEDS: LINEZOLID INJ 600 MG/300 ML PREMIX IV SCH ×2 (09:03→21:57)
[2022-08-16] MEDS: ENOXAPARIN 40 MG/0.4 ML SYRINGE SUBCUT SCH (09:03)
[2022-08-16] MEDS: INSULIN NPH 100 UNIT/ML SUBCUT SCH (16:46)
[2022-08-16] MEDS: LACTATED RINGERS 1,000 ML IV SCH ×2 (18:38→23:48)
[2022-08-16] MEDS: ATORVASTATIN 80 MG TABLET PO SCH (21:58)
[2022-08-17] MEDS: PIPERACILLIN/TAZOBACTAM 3,375 MG in SODIUM CHLORIDE 0.9% 100 ML IV SCH ×3 (06:38→22:48)
[2022-08-17] MEDS: CLOPIDOGREL 75 MG TABLET PO SCH (09:05)
[2022-08-17] MEDS: lisinopriL 5 MG TABLET PO SCH (09:05)
[2022-08-17] MEDS: PANTOPRAZOLE 40 MG TABLET PO SCH (09:05)
[2022-08-17] MEDS: ASPIRIN CHEW 81 MG TABLET PO SCH (09:05)
[2022-08-17] MEDS: INSULIN NPH 100 UNIT/ML SUBCUT SCH ×2 (09:06→16:48)
[2022-08-17] MEDS: INSULIN LISPRO 100 UNIT/ML SUBCUT SCH ×4 (09:06→21:33)
[2022-08-17] MEDS: ENOXAPARIN 40 MG/0.4 ML SYRINGE SUBCUT SCH (11:54)
[2022-08-17] MEDS: LINEZOLID INJ 600 MG/300 ML PREMIX IV SCH ×2 (11:54→21:39)
[2022-08-17] MEDS: LACTATED RINGERS 1,000 ML IV SCH ×2 (18:38→22:46)
[2022-08-17] MEDS: ATORVASTATIN 80 MG TABLET PO SCH (21:33)
[2022-08-18] MEDS: PIPERACILLIN/TAZOBACTAM 3,375 MG in SODIUM CHLORIDE 0.9% 100 ML IV SCH ×2 (04:07→15:00)
[2022-08-18] MEDS: LACTATED RINGERS 1,000 ML IV SCH (06:17)
[2022-08-18] MEDS: ASPIRIN CHEW 81 MG TABLET PO SCH (08:37)
[2022-08-18] MEDS: CLOPIDOGREL 75 MG TABLET PO SCH (08:37)
[2022-08-18] MEDS: PANTOPRAZOLE 40 MG TABLET PO SCH (08:37)
[2022-08-18] MEDS: lisinopriL 5 MG TABLET PO SCH (08:37)
[2022-08-18] MEDS: INSULIN NPH 100 UNIT/ML SUBCUT SCH (08:38)
[2022-08-18] MEDS: INSULIN LISPRO 100 UNIT/ML SUBCUT SCH ×2 (08:42→14:06)
[2022-08-18] MEDS: ENOXAPARIN 40 MG/0.4 ML SYRINGE SUBCUT SCH (10:26)
[2022-08-18] MEDS: LINEZOLID INJ 600 MG/300 ML PREMIX IV SCH (10:26)
[2022-08-18 12:51] VITALS: BP 184/97
== END 2022-08-18 15:00 | disposition home or self-care (01) | DRG 301 ==
LOC: N.5E 16:13
PROVIDERS: ADMIT Surgery; ATTEND Surgery

== ENCOUNTER 2022-09-24 16:43 | Inpatient (IN) ==
[2022-09-24] MEDS ORDERED: ERTAPENEM 1,000 MG in SODIUM CHLORIDE 0.9% 100 ML IV ONE (22:15)
[2022-09-24 22:28] LABS: Basophils # 0.1 10*3/uL (0.0-0.2); Basophils % 0.4 % (0.0-0.8); Eosinophils # 0.4 10*3/uL (0.0-0.87); Eosinophils % 2.6 % (0.00-10.9); Hematocrit 34.7 VOL% (42.0-52.0); Hemoglobin 11.2 GM/DL (14.0-18.0); Immature Granulocytes % 0.6 %; Immature Granulocytes Absolute 0.08 #; Lymphocytes # 3.2 10*3/uL (1.4-4.0); Lymphocytes % 23.1 % (21.2-54.2); Mean Corpuscular HGB Conc 32.3 GM/DL (32-36); Mean Corpuscular Volume 88.1 FL (87-102); Mean Platelet Volume 9.8 FL (9.6-12.0); Monocytes # 0.8 10*3/uL (0.11-0.8); Monocytes % 5.8 % (1.7-12.7); Neutrophils % 67.5 % (38.7-73.9); Platelet Count 372 T/CUMM (130-400); Red Blood Count 3.94 MC/CUMM (3.8-5.5); Red Cell Distribution Width 13.5 % (9.3-17.3); White Blood Count 13.7 T/CUMM (4-12)
[2022-09-24 22:36] LABS: PT Patient Result 10.6 SECS (10.1-12.1)
[2022-09-24 22:51] LABS: Alanine Aminotransferase 13 U/L (16-61); Albumin 2.3 G/DL (3.4-5.0); Alkaline Phosphatase 116 U/L (45-117); Aspartate Amino Transferase 9 U/L (0-37); Bilirubin,Total < 0.39 MG/DL (0.20-1.00); Blood Urea Nitrogen 42 MG/DL (7-18); Calcium 8.7 MG/DL (8.5-10.1); Carbon Dioxide 26 MMOL/L (21-32); Chloride 101 MMOL/L (98-107); Glucose 212 MG/DL (74-106); Osmolality,Calculated 286.1 MOS/KG (273-304); Potassium 4.2 MMOL/L (3.5-5.1); Sodium 135 MMOL/L (136-145); Total Protein 7.8 G/DL (6.4-8.2)
[2022-09-24] MEDS ORDERED: SODIUM CHLORIDE 0.9% 1,000 ML IV STA (23:11)
[2022-09-25] MEDS ORDERED: ONDANSETRON 4 MG/2 ML VIAL IV PRN (00:03)
[2022-09-25] MEDS ORDERED: GLUCAGON 1 MG VIAL IM PRN (00:03)
[2022-09-25] MEDS ORDERED: DEXTROSE 10% 250 ML BAG IV PRN (00:37)
[2022-09-25] MEDS ORDERED: SODIUM CHLORIDE 0.9% 1,000 ML IV SCH (01:00)
[2022-09-25] MEDS: SODIUM CHLORIDE 0.9% 1,000 ML IV SCH ×3 (01:30→23:05)
[2022-09-25 07:36] LABS: Basophils # 0.1 10*3/uL (0.0-0.2); Basophils % 0.4 % (0.0-0.8); Eosinophils # 0.5 10*3/uL (0.0-0.87); Eosinophils % 3.9 % (0.00-10.9); Hematocrit 31.2 VOL% (42.0-52.0); Immature Granulocytes % 0.3 %; Immature Granulocytes Absolute 0.04 #; Lymphocytes # 2.4 10*3/uL (1.4-4.0); Lymphocytes % 20.2 % (21.2-54.2); Mean Corpuscular HGB Conc 32.1 GM/DL (32-36); Mean Corpuscular Volume 88.9 FL (87-102); Mean Platelet Volume 10.6 FL (9.6-12.0); Monocytes # 0.9 10*3/uL (0.11-0.8); Monocytes % 7.7 % (1.7-12.7); Neutrophils % 67.5 % (38.7-73.9); Platelet Count 283 T/CUMM (130-400); Red Blood Count 3.51 MC/CUMM (3.8-5.5); Red Cell Distribution Width 13.7 % (9.3-17.3); White Blood Count 11.7 T/CUMM (4-12)
[2022-09-25] MEDS: INSULIN REGULAR 100 UNIT/ML SUBCUT SCH ×4 (07:45→21:17)
[2022-09-25 07:48] LABS: Alanine Aminotransferase 9 U/L (16-61); Albumin 1.8 G/DL (3.4-5.0); Alkaline Phosphatase 97 U/L (45-117); Aspartate Amino Transferase 7 U/L (0-37); Bilirubin,Total < 0.39 MG/DL (0.20-1.00); Blood Urea Nitrogen 36 MG/DL (7-18); Calcium 8.1 MG/DL (8.5-10.1); Carbon Dioxide 26 MMOL/L (21-32); Chloride 108 MMOL/L (98-107); Glucose 151 MG/DL (74-106); Osmolality,Calculated 293.1 MOS/KG (273-304); Potassium 4.3 MMOL/L (3.5-5.1); Sodium 142 MMOL/L (136-145); Total Protein 5.8 G/DL (6.4-8.2)
[2022-09-25 07:53] LABS: Calcium 7.8 MG/DL (8.5-10.1); Osmolality,Calculated 291.3 MOS/KG (273-304); Potassium 4.3 MMOL/L (3.5-5.1)
[2022-09-25 08:09] LABS: Anisocytosis 1+; Platelet Estimate Normal
[2022-09-25 08:10] LABS: Burr Cells Few
[2022-09-25] MEDS ORDERED: MAGNESIUM SULF RIDER 2 GM/50 ML PREMIX IV ONE (08:41)
[2022-09-25] MEDS: ENOXAPARIN 40 MG/0.4 ML SYRINGE SUBCUT SCH (09:31)
[2022-09-25] MEDS: CLOPIDOGREL 75 MG TABLET PO SCH (09:31)
[2022-09-25] MEDS: ATORVASTATIN 80 MG TABLET PO SCH (09:31)
[2022-09-25] MEDS: lisinopriL 5 MG TABLET PO SCH (09:32)
[2022-09-25] MEDS: PANTOPRAZOLE 40 MG TABLET PO SCH (09:32)
[2022-09-25] MEDS: ASPIRIN CHEW 81 MG TABLET PO SCH (09:32)
[2022-09-25] MEDS: PIPERACILLIN/TAZOBACTAM 3,375 MG in SODIUM CHLORIDE 0.9% 100 ML IV SCH ×3 (12:12→23:07)
[2022-09-26 03:54] LABS: Basophils # 0.1 10*3/uL (0.0-0.2); Basophils % 0.4 % (0.0-0.8); Eosinophils # 0.6 10*3/uL (0.0-0.87); Eosinophils % 4.8 % (0.00-10.9); Hematocrit 29.7 VOL% (42.0-52.0); Hemoglobin 9.7 GM/DL (14.0-18.0); Immature Granulocytes % 0.3 %; Immature Granulocytes Absolute 0.04 #; Lymphocytes # 1.3 10*3/uL (1.4-4.0); Lymphocytes % 11.7 % (21.2-54.2); Mean Corpuscular HGB Conc 32.7 GM/DL (32-36); Mean Corpuscular Volume 88.4 FL (87-102); Monocytes # 0.8 10*3/uL (0.11-0.8); Monocytes % 6.6 % (1.7-12.7); Neutrophils % 76.2 % (38.7-73.9); Platelet Count 329 T/CUMM (130-400); Red Blood Count 3.36 MC/CUMM (3.8-5.5); Red Cell Distribution Width 13.3 % (9.3-17.3); White Blood Count 11.5 T/CUMM (4-12)
[2022-09-26 04:23] LABS: Calcium 8.2 MG/DL (8.5-10.1); Osmolality,Calculated 289.4 MOS/KG (273-304); Potassium 4.1 MMOL/L (3.5-5.1)
[2022-09-26] MEDS ORDERED: CLINDAMYCIN INJ 900 MG/50 ML PREMIX IV ONE (07:57)
[2022-09-26] MEDS: PIPERACILLIN/TAZOBACTAM 3,375 MG in SODIUM CHLORIDE 0.9% 100 ML IV SCH ×2 (08:18→16:39)
[2022-09-26] MEDS: ENOXAPARIN 40 MG/0.4 ML SYRINGE SUBCUT SCH (08:19)
[2022-09-26] MEDS: PANTOPRAZOLE 40 MG TABLET PO SCH (08:20)
[2022-09-26] MEDS: ASPIRIN CHEW 81 MG TABLET PO SCH (08:20)
[2022-09-26] MEDS: ATORVASTATIN 80 MG TABLET PO SCH (08:20)
[2022-09-26] MEDS: INSULIN REGULAR 100 UNIT/ML SUBCUT SCH ×4 (08:20→21:16)
[2022-09-26] MEDS: SODIUM CHLORIDE 0.9% 1,000 ML IV SCH ×2 (08:20→16:40)
[2022-09-26] MEDS: lisinopriL 5 MG TABLET PO SCH (08:20)
[2022-09-26] MEDS: CLOPIDOGREL 75 MG TABLET PO SCH (08:20)
[2022-09-26] MEDS ORDERED: ALBUTEROL 2.5 MG/3 ML NEB RESP TX ONE (08:36)
[2022-09-26] MEDS ORDERED: FAMOTIDINE 20 MG TABLET PO ONE (08:36)
[2022-09-27] MEDS: PIPERACILLIN/TAZOBACTAM 3,375 MG in SODIUM CHLORIDE 0.9% 100 ML IV SCH ×4 (00:10→23:07)
[2022-09-27 03:59] LABS: Basophils # 0.1 10*3/uL (0.0-0.2); Basophils % 0.5 % (0.0-0.8); Eosinophils # 0.6 10*3/uL (0.0-0.87); Eosinophils % 5.8 % (0.00-10.9); Hematocrit 30.6 VOL% (42.0-52.0); Immature Granulocytes % 0.5 %; Immature Granulocytes Absolute 0.05 #; Lymphocytes # 1.7 10*3/uL (1.4-4.0); Lymphocytes % 15.2 % (21.2-54.2); Mean Corpuscular HGB Conc 32.7 GM/DL (32-36); Mean Corpuscular Volume 87.7 FL (87-102); Mean Platelet Volume 9.6 FL (9.6-12.0); Monocytes # 0.8 10*3/uL (0.11-0.8); Platelet Count 351 T/CUMM (130-400); Red Blood Count 3.49 MC/CUMM (3.8-5.5); Red Cell Distribution Width 13.3 % (9.3-17.3); White Blood Count 10.9 T/CUMM (4-12)
[2022-09-27 04:26] LABS: Osmolality,Calculated 290.4 MOS/KG (273-304); Potassium 4.6 MMOL/L (3.5-5.1)
[2022-09-27] MEDS: SODIUM CHLORIDE 0.9% 1,000 ML IV SCH ×3 (04:28→22:04)
[2022-09-27] MEDS ORDERED: ALBUTEROL 2.5 MG/3 ML NEB RESP TX ONE (06:30)
[2022-09-27] MEDS ORDERED: FAMOTIDINE 20 MG TABLET PO ONE (06:30)
[2022-09-27] MEDS ORDERED: CLINDAMYCIN INJ 900 MG/50 ML PREMIX IV ONE (06:30)
[2022-09-27] MEDS ORDERED: MIDAZOLAM 2 MG/2 ML VIAL ONE (07:30)
[2022-09-27] MEDS ORDERED: fentaNYL 100 MCG/2 ML VIAL ONE ×2 (07:30→08:10)
[2022-09-27] MEDS ORDERED: BUPIVACAINE MPF 0.25% 10 ML VIAL ONE (07:49)
[2022-09-27] MEDS ORDERED: SEVOFLURANE 1 UNIT/15 MINUTE INH ONE (08:11)
[2022-09-27] MEDS ORDERED: LIDOCAINE 2% 5 ML VIAL ONE (08:11)
[2022-09-27] MEDS ORDERED: propofoL 200 MG/20 ML VIAL IV ONE (08:11)
[2022-09-27] MEDS ORDERED: ONDANSETRON 4 MG/2 ML VIAL ONE (08:11)
[2022-09-27] MEDS ORDERED: PHENYLEPHRINE 1 MG/10 ML SYRINGE IV ONE (08:14)
[2022-09-27] MEDS: INSULIN REGULAR 100 UNIT/ML SUBCUT SCH ×4 (10:12→21:04)
[2022-09-27] MEDS: CLOPIDOGREL 75 MG TABLET PO SCH (10:22)
[2022-09-27] MEDS: PANTOPRAZOLE 40 MG TABLET PO SCH (10:22)
[2022-09-27] MEDS: ENOXAPARIN 40 MG/0.4 ML SYRINGE SUBCUT SCH (10:23)
[2022-09-27] MEDS: ATORVASTATIN 80 MG TABLET PO SCH (10:23)
[2022-09-27] MEDS: ASPIRIN CHEW 81 MG TABLET PO SCH (10:23)
[2022-09-27] MEDS: lisinopriL 5 MG TABLET PO SCH (10:25)
[2022-09-27] MEDS ORDERED: INSULIN NPH/REG 70/30 100 UNIT/ML SUBCUT SCH (16:30)
[2022-09-28 04:49] LABS: Basophils # 0.1 10*3/uL (0.0-0.2); Basophils % 0.5 % (0.0-0.8); Eosinophils # 0.7 10*3/uL (0.0-0.87); Hematocrit 30.2 VOL% (42.0-52.0); Hemoglobin 9.8 GM/DL (14.0-18.0); Immature Granulocytes % 0.5 %; Immature Granulocytes Absolute 0.05 #; Lymphocytes # 2.1 10*3/uL (1.4-4.0); Lymphocytes % 18.7 % (21.2-54.2); Mean Corpuscular HGB Conc 32.5 GM/DL (32-36); Mean Corpuscular Volume 88.6 FL (87-102); Mean Platelet Volume 9.7 FL (9.6-12.0); Monocytes # 0.8 10*3/uL (0.11-0.8); Monocytes % 7.5 % (1.7-12.7); Neutrophils % 66.8 % (38.7-73.9); Platelet Count 388 T/CUMM (130-400); Red Blood Count 3.41 MC/CUMM (3.8-5.5); Red Cell Distribution Width 13.4 % (9.3-17.3); White Blood Count 11.1 T/CUMM (4-12)
[2022-09-28 05:07] LABS: Osmolality,Calculated 285.1 MOS/KG (273-304); Potassium 3.9 MMOL/L (3.5-5.1)
[2022-09-28] MEDS ORDERED: INSULIN NPH/REG 70/30 100 UNIT/ML SUBCUT SCH (07:30)
[2022-09-28] MEDS: INSULIN REGULAR 100 UNIT/ML SUBCUT SCH ×4 (07:47→20:12)
[2022-09-28] MEDS: ATORVASTATIN 80 MG TABLET PO SCH (08:22)
[2022-09-28] MEDS: ASPIRIN CHEW 81 MG TABLET PO SCH (08:22)
[2022-09-28] MEDS: lisinopriL 5 MG TABLET PO SCH (08:22)
[2022-09-28] MEDS: ENOXAPARIN 40 MG/0.4 ML SYRINGE SUBCUT SCH (08:22)
[2022-09-28] MEDS: CLOPIDOGREL 75 MG TABLET PO SCH (08:23)
[2022-09-28] MEDS: PANTOPRAZOLE 40 MG TABLET PO SCH (08:26)
[2022-09-28] MEDS: PIPERACILLIN/TAZOBACTAM 3,375 MG in SODIUM CHLORIDE 0.9% 100 ML IV SCH (09:21)
[2022-09-28] MEDS: SODIUM CHLORIDE 0.9% 1,000 ML IV SCH (10:00)
[2022-09-28] MEDS: LEVOFLOXACIN INJ 750 MG/150 ML PREMIX IV SCH (14:26)
[2022-09-28] MEDS: INSULIN NPH/REG 70/30 100 UNIT/ML SUBCUT SCH (17:59)
[2022-09-29 05:11] LABS: Basophils % 0.5 % (0.0-0.8); Eosinophils # 0.7 10*3/uL (0.0-0.87); Eosinophils % 7.5 % (0.00-10.9); Hemoglobin 9.2 GM/DL (14.0-18.0); Immature Granulocytes % 0.6 %; Immature Granulocytes Absolute 0.05 #; Lymphocytes # 2.2 10*3/uL (1.4-4.0); Lymphocytes % 24.8 % (21.2-54.2); Mean Corpuscular HGB Conc 32.9 GM/DL (32-36); Mean Corpuscular Volume 87.8 FL (87-102); Mean Platelet Volume 9.7 FL (9.6-12.0); Monocytes # 0.6 10*3/uL (0.11-0.8); Monocytes % 7.1 % (1.7-12.7); Neutrophils % 59.5 % (38.7-73.9); Platelet Count 396 T/CUMM (130-400); Red Blood Count 3.19 MC/CUMM (3.8-5.5); Red Cell Distribution Width 13.2 % (9.3-17.3); White Blood Count 8.7 T/CUMM (4-12)
[2022-09-29 07:44] LABS: Calcium 8.6 MG/DL (8.5-10.1); Osmolality,Calculated 283.4 MOS/KG (273-304); Potassium 4.1 MMOL/L (3.5-5.1)
[2022-09-29] MEDS: INSULIN REGULAR 100 UNIT/ML SUBCUT SCH ×4 (08:16→21:29)
[2022-09-29] MEDS: INSULIN NPH/REG 70/30 100 UNIT/ML SUBCUT SCH ×2 (10:18→17:47)
[2022-09-29] MEDS: ATORVASTATIN 80 MG TABLET PO SCH (10:19)
[2022-09-29] MEDS: ENOXAPARIN 40 MG/0.4 ML SYRINGE SUBCUT SCH (10:19)
[2022-09-29] MEDS: PANTOPRAZOLE 40 MG TABLET PO SCH (10:19)
[2022-09-29] MEDS: CLOPIDOGREL 75 MG TABLET PO SCH (10:19)
[2022-09-29] MEDS: lisinopriL 5 MG TABLET PO SCH (10:19)
[2022-09-29] MEDS: ASPIRIN CHEW 81 MG TABLET PO SCH (10:19)
[2022-09-29] MEDS: LEVOFLOXACIN INJ 750 MG/150 ML PREMIX IV SCH (13:08)
[2022-09-30] MEDS: INSULIN REGULAR 100 UNIT/ML SUBCUT SCH ×2 (07:32→11:53)
[2022-09-30 08:44] VITALS: BP 148/98
[2022-09-30] MEDS: ATORVASTATIN 80 MG TABLET PO SCH (09:02)
[2022-09-30] MEDS: ASPIRIN CHEW 81 MG TABLET PO SCH (09:02)
[2022-09-30] MEDS: lisinopriL 5 MG TABLET PO SCH (09:03)
[2022-09-30] MEDS: CLOPIDOGREL 75 MG TABLET PO SCH (09:03)
[2022-09-30] MEDS: PANTOPRAZOLE 40 MG TABLET PO SCH (09:03)
[2022-09-30] MEDS: ENOXAPARIN 40 MG/0.4 ML SYRINGE SUBCUT SCH (09:03)
[2022-09-30] MEDS: INSULIN NPH/REG 70/30 100 UNIT/ML SUBCUT SCH (09:04)
[2022-09-30] MEDS ORDERED: LEVOFLOXACIN 750 MG TABLET PO SCH (10:00)
== END 2022-09-30 14:08 | disposition home or self-care (01) | DRG 617 ==
LOC: N.ED 16:43 → SUATTDRO 09-25 00:03 → N.2E 09-25 00:03
PROVIDERS: ADMIT Internal Medicine; ATTEND Internal Medicine